=== PATIENT | female | born 1960 | race Hispanic/Latino ===

== ENCOUNTER 2021-08-23 20:39 | Emergency (ER) | payer MEDICARE, OTHER ==
[~2021-08-23] VITALS: Ht 149.9 cm; Wt 50.8 kg
[~2021-08-23 20:39] MED LIST: CLONIDINE HCL0.2 MG PO; GABAPENTIN300 MG PO; IRBESARTAN150 MG PO; LISINOPRIL5 MG; METFORMIN HCL500 MG; METFORMIN HCL500 MG PO; NOVOLOG100 UNIT/1 SC; TRAZODONE HCL50 MG PO
[2021-08-23] MEDS ORDERED: SODIUM CHLORIDE 0.9% 1000ML 1,000 ML IV STA (20:46)
[2021-08-23] MEDS ORDERED: ASPIRIN 81 MG CHEW TAB PO ONE (21:00)
[2021-08-23 21:20] LABS: BASOPHILS # (AUTO) 0.1 (0.0-0.1); BASOPHILS % 0.9 % (0.0-1.0); EOSINOPHILS # (AUTO) 0.2 (0.0-0.4); EOSINOPHILS % 2.5 % (0.0-6.0); HEMATOCRIT 35.6 % (34.2-44.1); HEMOGLOBIN 11.3 g/dL (12.0-16.0); LYMPHOCYTES # (AUTO) 2.4 (1.0-3.2); LYMPHOCYTES % 31.4 % (18.0-39.1); MEAN CORPUSCULAR HEMOGLOBIN 30.6 pg (28-32); MEAN CORPUSCULAR HGB CONC 31.7 g/dL (31-35); MEAN CORPUSCULAR VOLUME 96.5 fL (81-99); MONOCYTES # (AUTO) 0.8 (0.2-0.8); MONOCYTES % 10.1 % (4.4-11.3); NEUTROPHILS # (AUTO) 4.2 (2.1-6.9); NEUTROPHILS % 54.8 % (38.7-80.0); PLATELET COUNT 141 x10e3/uL (140-360); RED BLOOD COUNT 3.69 x10e6/uL (3.6-5.1); RED CELL DISTRIBUTION WIDTH 14.2 % (11.7-14.4)
[2021-08-23 21:52] LABS: ALANINE AMINOTRANSFERASE 37 IU/L (0-55); ALBUMIN 2.9 g/dL (3.5-5.0); ALBUMIN/GLOBULIN RATIO 0.5 (0.8-2.0); ALKALINE PHOSPHATASE 263 IU/L (40-150); BLOOD UREA NITROGEN 17 mg/dL (7-26); BUN/CREATININE RATIO 19 (6-25); CALCIUM 8.3 mg/dL (8.4-10.2); CARBON DIOXIDE 19 mmol/L (22-29); CHLORIDE 111 mmol/L (98-107); CREATINE KINASE 98 IU/L (29-168); CREATININE, SERUM 0.89 mg/dL (0.57-1.11); EST GLOMERULAR FILTRATION RATE 64 ML/MIN (60-); GLUCOSE 149 mg/dL (74-118); SODIUM 138 mmol/L (136-145)
[2021-08-23 23:01] LABS: AMPHETAMINES SCREEN,URINE NEGATIVE (NEGATIVE); BENZODIAZEPINES SCREEN,URINE NEGATIVE (NEGATIVE); CLARITY,URINE SL CLOUDY (CLEAR); COLOR,URINE YELLOW (YELLOW); KETONES,URINE NEGATIVE (NEGATIVE); LEUKOCYTE ESTERASE ,URINE NEGATIVE (NEGATIVE); NITRITE,URINE NEGATIVE (NEGATIVE); PHENCYCLIDINE SCREEN,URINE NEGATIVE (NEGATIVE); PROTEIN,URINE DIPSTICK 1+ (NEGATIVE)
[2021-08-23 23:05] LABS: BACTERIA,URINE FEW /HPF; EPITHELIAL CELLS,URINE MODERATE /LPF; RBC,URINE 0-5 /HPF (0-5); WBC,URINE (MAN) 0-5 /HPF (0-5)
[2021-08-23] MEDS ORDERED: IOPAMIDOL 370 MG/ML 100 ML INFUS..BTL INJ ONE (23:35)
[2021-08-23] MEDS ORDERED: SODIUM CHLORIDE 0.9% 0 ML ONE (23:35)
[2021-08-23] MEDS ORDERED: SODIUM CHLORIDE 0.9% 100 ML ONE (23:55)
[2021-08-24 01:58] VITALS: BP 160/79
== END 2021-08-24 01:53 | disposition home or self-care (01) ==
LOC: ER 20:45
DX: R53.1 Weakness (principal); E11.65 Type 2 diabetes mellitus with hyperglycemia; E11.40 Type 2 diabetes mellitus with diabetic neuropathy, unspecified; I10 Essential (primary) hypertension; K76.9 Liver disease, unspecified
CPT/HCPCS: 36415; 70450; 70496; 70498; 71045; 80053; 80307; 80320; 81001; 82550; 82553; 83880; 84484; 85025; 93005; 99284; J7030; J7050; Q9967

== ENCOUNTER 2021-10-27 19:45 | Emergency (ER) | payer MEDICARE, OTHER ==
[~2021-10-27] VITALS: Ht 149.9 cm; Wt 50.8 kg
[2021-10-27] MEDS ORDERED: LASIX20 MG PO (22:52)
== END 2021-10-27 22:58 | disposition home or self-care (01) ==
LOC: ER 19:47
DX: R60.9 Edema, unspecified (principal); E11.65 Type 2 diabetes mellitus with hyperglycemia; E11.40 Type 2 diabetes mellitus with diabetic neuropathy, unspecified; I10 Essential (primary) hypertension; K76.9 Liver disease, unspecified
CPT/HCPCS: 36415; 71046; 82948; 99283

== ENCOUNTER 2021-12-31 19:26 | Emergency (ER) | payer MEDICARE, OTHER ==
[~2021-12-31] VITALS: Ht 149.9 cm; Wt 49.0 kg
[~2021-12-31 19:26] MED LIST changes: +LASIX20 MG PO
[2021-12-31] MEDS ORDERED: TRAMADOL HCL 50 MG TAB PO STA (20:08)
[2021-12-31] MEDS ORDERED: ULTRAM 50MG50 MG PO (23:11)
[2021-12-31 23:18] VITALS: BP 152/80
== END 2021-12-31 23:21 | disposition home or self-care (01) ==
LOC: ER 19:40
DX: S06.0X0A Concussion without loss of consciousness, initial encounter (principal); M25.511 Pain in right shoulder; M25.551 Pain in right hip; M53.3 Sacrococcygeal disorders, not elsewhere classified; W18.39XA Other fall on same level, initial encounter; Y93.01 Activity, walking, marching and hiking; Y92.89 Other specified places as the place of occurrence of the external cause; E11.40 Type 2 diabetes mellitus with diabetic neuropathy, unspecified; I10 Essential (primary) hypertension; K76.9 Liver disease, unspecified
CPT/HCPCS: 70450; 72220; 99284

== ENCOUNTER 2022-01-24 10:24 | Observation (INO) | payer MEDICARE, OTHER ==
[~2022-01-24] VITALS: Ht 149.9 cm; Wt 47.6 kg
[~2022-01-24 10:24] MED LIST changes: +ULTRAM 50MG50 MG PO
[2022-01-24 11:10] LABS: CLARITY,URINE CLEAR (CLEAR); COLOR,URINE YELLOW (YELLOW)
[2022-01-24 11:11] LABS: LEUKOCYTE ESTERASE ,URINE NEGATIVE (NEGATIVE); NITRITE,URINE NEGATIVE (NEGATIVE); PROTEIN,URINE DIPSTICK 2+ (NEGATIVE)
[2022-01-24 11:12] LABS: KETONES,URINE NEGATIVE (NEGATIVE)
[2022-01-24 11:19] LABS: ALBUMIN 2.9 g/dL (3.5-5.0); ALBUMIN/GLOBULIN RATIO 0.5 (0.8-2.0); ANION GAP 15.6 mmol/L (8-16); CALCIUM 9.3 mg/dL (8.4-10.2); CREATININE, SERUM 1.12 mg/dL (0.57-1.11); POTASSIUM 3.6 mmol/L (3.5-5.1)
[2022-01-24 11:28] LABS: BACTERIA,URINE MODERATE /HPF; WBC,URINE (MAN) 0-5 /HPF (0-5)
[2022-01-24 11:29] LABS: EPITHELIAL CELLS,URINE MODERATE /LPF
[2022-01-24] MEDS ORDERED: SODIUM CHLORIDE 0.9% 1000ML 1,000 ML IV SCH (12:00)
[2022-01-24 12:18] LABS: BASOPHILS # (AUTO) 0.1 (0.0-0.1); BASOPHILS % 0.8 % (0.0-1.0); EOSINOPHILS # (AUTO) 0.2 (0.0-0.4); EOSINOPHILS % 3.5 % (0.0-6.0); HEMATOCRIT 36.7 % (34.2-44.1); HEMOGLOBIN 11.4 g/dL (12.0-16.0); LYMPHOCYTES # (AUTO) 1.8 (1.0-3.2); LYMPHOCYTES % 29.3 % (18.0-39.1); MEAN CORPUSCULAR HEMOGLOBIN 30.3 pg (28-32); MEAN CORPUSCULAR HGB CONC 31.1 g/dL (31-35); MEAN CORPUSCULAR VOLUME 97.6 fL (81-99); MONOCYTES # (AUTO) 0.5 (0.2-0.8); MONOCYTES % 8.5 % (4.4-11.3); NEUTROPHILS # (AUTO) 3.6 (2.1-6.9); NEUTROPHILS % 57.9 % (38.7-80.0); PLATELET COUNT 88 x10e3/uL (140-360); RED BLOOD COUNT 3.76 x10e6/uL (3.6-5.1); RED CELL DISTRIBUTION WIDTH 14.6 % (11.7-14.4)
[2022-01-24] MEDS: SODIUM CHLORIDE 0.9% 1000ML 1,000 ML IV SCH ×2 (13:37→17:37)
[2022-01-24 16:40] VITALS: BP 143/74
[2022-01-24 16:41] VITALS: BP 143/74
[2022-01-24 16:49] VITALS: BP 143/74
[2022-01-24 20:24] VITALS: BP 150/67
== END 2022-01-24 22:00 | disposition left against medical advice (07) ==
LOC: ER 10:43 → ERHOLD 11:49 → MED/SURG 16:37 → MED/SURG2 17:13
PROVIDERS: ADMIT Internal Medicine; ATTEND Internal Medicine
DX: N39.0 Urinary tract infection, site not specified (principal); B96.89 Other specified bacterial agents as the cause of diseases classified elsewhere; Z88.6 Allergy status to analgesic agent; Z88.5 Allergy status to narcotic agent; Z88.0 Allergy status to penicillin; I10 Essential (primary) hypertension; K76.9 Liver disease, unspecified; E11.40 Type 2 diabetes mellitus with diabetic neuropathy, unspecified; Z79.4 Long term (current) use of insulin; Z20.822 Contact with and (suspected) exposure to COVID-19; Z79.899 Other long term (current) drug therapy
CPT/HCPCS: 36415; 70450; 71045; 80053; 81001; 82948; 84484; 85025; 87040; 87086; 93005; 94799; 99284; G0378; J0696; J7030; U0002

== ENCOUNTER 2022-05-21 13:46 | Emergency (ER) | payer MEDICARE, OTHER ==
[~2022-05-21] VITALS: Ht 149.9 cm; Wt 47.6 kg
[2022-05-21 14:19] LABS: BASOPHILS % 0.5 % (0.0-1.0); EOSINOPHILS # (AUTO) 0.2 (0.0-0.4); EOSINOPHILS % 2.7 % (0.0-6.0); HEMATOCRIT 31.8 % (34.2-44.1); HEMOGLOBIN 9.8 g/dL (12.0-16.0); LYMPHOCYTES # (AUTO) 1.7 (1.0-3.2); MEAN CORPUSCULAR HGB CONC 30.8 g/dL (31-35); MEAN CORPUSCULAR VOLUME 97.2 fL (81-99); MONOCYTES # (AUTO) 0.7 (0.2-0.8); MONOCYTES % 9.9 % (4.4-11.3); NEUTROPHILS # (AUTO) 4.7 (2.1-6.9); NEUTROPHILS % 63.6 % (38.7-80.0); PLATELET COUNT 193 x10e3/uL (140-360); RED BLOOD COUNT 3.27 x10e6/uL (3.6-5.1); RED CELL DISTRIBUTION WIDTH 14.9 % (11.7-14.4)
[2022-05-21 14:26] LABS: INR 1.09; PROTHROMBIN TIME 14.3 seconds (11.9-14.5)
[2022-05-21 14:34] LABS: ALBUMIN 2.7 g/dL (3.5-5.0); ALBUMIN/GLOBULIN RATIO 0.5 (0.8-2.0); ANION GAP 14.3 mmol/L (8-16); CALCIUM 8.7 mg/dL (8.4-10.2); CREATININE, SERUM 0.88 mg/dL (0.57-1.11); POTASSIUM 4.3 mmol/L (3.5-5.1)
== END 2022-05-21 15:13 | disposition home or self-care (01) ==
LOC: ER 14:10
DX: R18.8 Other ascites (principal); K74.60 Unspecified cirrhosis of liver; K70.9 Alcoholic liver disease, unspecified; E11.65 Type 2 diabetes mellitus with hyperglycemia; I10 Essential (primary) hypertension; F17.210 Nicotine dependence, cigarettes, uncomplicated
CPT/HCPCS: 36415; 74470; 76705; 80053; 85025; 85610; 99284; C1729

== ENCOUNTER → 2022-06-15 | Outpatient (CLI) | payer MEDICARE, OTHER | LOC: US 12:00 | PROVIDERS: ATTEND Nurse Practitioner | DX: K70.30 Alcoholic cirrhosis of liver without ascites (principal) | CPT/HCPCS: 49083; C1729 ==

== ENCOUNTER 2022-07-04 23:42 | Inpatient (IN) | payer MEDICARE, OTHER ==
[~2022-07-04] VITALS: Ht 149.9 cm; Wt 47.6 kg
[2022-07-05] MEDS ORDERED: ONDANSETRON HCL INJ 2MG/ML 2ML 2 MG/ML VIAL IV STA (00:04)
[2022-07-05 00:09] LABS: BASOPHILS # (AUTO) 0.1 (0.0-0.1); EOSINOPHILS # (AUTO) 0.2 (0.0-0.4); EOSINOPHILS % 2.8 % (0.0-6.0); HEMATOCRIT 30.6 % (34.2-44.1); HEMOGLOBIN 9.3 g/dL (12.0-16.0); LYMPHOCYTES # (AUTO) 1.9 (1.0-3.2); LYMPHOCYTES % 23.9 % (18.0-39.1); MEAN CORPUSCULAR HEMOGLOBIN 28.3 pg (28-32); MEAN CORPUSCULAR HGB CONC 30.4 g/dL (31-35); MONOCYTES # (AUTO) 0.8 (0.2-0.8); MONOCYTES % 10.5 % (4.4-11.3); NEUTROPHILS # (AUTO) 4.9 (2.1-6.9); NEUTROPHILS % 61.5 % (38.7-80.0); PLATELET COUNT 164 x10e3/uL (140-360); RED BLOOD COUNT 3.29 x10e6/uL (3.6-5.1); RED CELL DISTRIBUTION WIDTH 15.7 % (11.7-14.4)
[2022-07-05] MEDS ORDERED: SODIUM CHLORIDE FLUSH 10 ML SYR IV PRN (00:15)
[2022-07-05 00:21] LABS: ALBUMIN 2.6 g/dL (3.5-5.0); ALBUMIN/GLOBULIN RATIO 0.4 (0.8-2.0); ANION GAP 13.6 mmol/L (8-16); CREATININE, SERUM 0.85 mg/dL (0.57-1.11); POTASSIUM 4.6 mmol/L (3.5-5.1)
[2022-07-05 03:10] LABS: CLARITY,URINE CLEAR (CLEAR); COLOR,URINE YELLOW (YELLOW); KETONES,URINE NEGATIVE (NEGATIVE); LEUKOCYTE ESTERASE ,URINE NEGATIVE (NEGATIVE); NITRITE,URINE NEGATIVE (NEGATIVE); PROTEIN,URINE DIPSTICK TRACE (NEGATIVE)
[2022-07-05 03:14] LABS: BACTERIA,URINE RARE /HPF; RBC,URINE 0-5 /HPF (0-5); WBC,URINE (MAN) 0-5 /HPF (0-5)
[2022-07-05] MEDS: LACTULOSE SYRUP 20 GM/30 ML UDC PO SCH ×4 (03:38→20:56)
[2022-07-05] MEDS ORDERED: ONDANSETRON HCL INJ 2MG/ML 2ML 2 MG/ML VIAL IV PRN ×2 (04:15→09:45)
[2022-07-05] MEDS ORDERED: SODIUM CHLORIDE FLUSH 10 ML SYR INJ PRN (04:15)
[2022-07-05] MEDS ORDERED: GABAPENTIN 300 MG CAP PO ONE (04:30)
[2022-07-05 10:45] LABS: FERRITIN 29.44 ng/mL (4.63-204.00)
[2022-07-05] MEDS ORDERED: LIDOCAINE HCL 2% LOCAL INJ 5 ML SDV VIAL INJ ONE (13:06)
[2022-07-05] MEDS ORDERED: PROPOFOL IV EMULSION 10 MG/ML 20 ML VIAL ONE (13:06)
[2022-07-05 17:03] VITALS: BP 155/62
[2022-07-05 17:21] VITALS: BP 155/62
[2022-07-05] MEDS ORDERED: AMLODIPINE BESY10 MG PO (19:43)
[2022-07-05] MEDS ORDERED: CONSTULOSE10 GM/15 M PO (19:43)
[2022-07-05] MEDS ORDERED: ATORVASTATIN CA20 MG PO (19:43)
[2022-07-05] MEDS ORDERED: LINZESS290 MCG PO (19:43)
[2022-07-05 20:00] VITALS: BP_SYST 116; BP_SYST 147; BP_DIAS 56; BP_DIAS 62
[2022-07-05] MEDS ORDERED: TRAZODONE HCL100 MG PO (20:09)
[2022-07-05 20:30] VITALS: BP 147/62
[2022-07-05] MEDS ORDERED: DEXTROSE 50% SYRINGE 50 ML IV PRN (20:30)
[2022-07-05] MEDS: TRAZODONE HCL 50 MG TAB PO SCH (20:57)
[2022-07-05] MEDS: GABAPENTIN 300 MG CAP PO SCH (20:57)
[2022-07-05] MEDS: INSULIN REGULAR, HUMAN 100 UNIT/1 ML SQ SCH (21:00)
[2022-07-06] VITALS (8 sets, daily range): BP systolic 118–134; BP diastolic 50–65
[2022-07-06 00:41] LABS: INR 1.17; PROTHROMBIN TIME 15.4 seconds (11.9-14.5)
[2022-07-06] MEDS ORDERED: CYANOCOBALAMIN INJ 1,000 MCG/ML VIAL IM ONE (01:30)
[2022-07-06 06:06] LABS: BASOPHILS % 0.8 % (0.0-1.0); EOSINOPHILS # (AUTO) 0.2 (0.0-0.4); EOSINOPHILS % 3.6 % (0.0-6.0); HEMOGLOBIN 8.7 g/dL (12.0-16.0); LYMPHOCYTES # (AUTO) 1.3 (1.0-3.2); LYMPHOCYTES % 25.4 % (18.0-39.1); MEAN CORPUSCULAR HEMOGLOBIN 28.7 pg (28-32); MEAN CORPUSCULAR HGB CONC 31.1 g/dL (31-35); MEAN CORPUSCULAR VOLUME 92.4 fL (81-99); MONOCYTES # (AUTO) 0.6 (0.2-0.8); MONOCYTES % 12.2 % (4.4-11.3); NEUTROPHILS # (AUTO) 2.9 (2.1-6.9); NEUTROPHILS % 57.8 % (38.7-80.0); PLATELET COUNT 158 x10e3/uL (140-360); RED BLOOD COUNT 3.03 x10e6/uL (3.6-5.1); RED CELL DISTRIBUTION WIDTH 15.7 % (11.7-14.4)
[2022-07-06 06:39] LABS: ALBUMIN 2.5 g/dL (3.5-5.0); BILIRUBIN,DIRECT 0.5 mg/dL (0.0-0.5); CALCIUM 8.8 mg/dL (8.4-10.2); CREATININE, SERUM 0.84 mg/dL (0.57-1.11)
[2022-07-06] MEDS: INSULIN REGULAR, HUMAN 100 UNIT/1 ML SQ SCH ×4 (07:30→23:23)
[2022-07-06] MEDS: CYANOCOBALAMIN INJ 1,000 MCG/ML VIAL IM SCH (08:36)
[2022-07-06] MEDS: IRON SUCROSE 100 MG in SODIUM CHLORIDE 0.9% 100 ML IV SCH (08:37)
[2022-07-06] MEDS: LACTULOSE SYRUP 20 GM/30 ML UDC PO SCH ×3 (09:00→21:21)
[2022-07-06] MEDS: GABAPENTIN 300 MG CAP PO SCH ×3 (09:00→21:21)
[2022-07-06] MEDS: RIFAXIMIN 550 MG TABLET PO SCH ×2 (09:00→16:17)
[2022-07-06] MEDS: DEXTROSE 5%/0.45% SOD CHL 1,000 ML IV SCH (15:29)
[2022-07-06] MEDS ORDERED: DESMOPRESSIN ACETATE 4 MCG/ML VIAL IV ONE (19:00)
[2022-07-06] MEDS ORDERED: PROPRANOLOL HCL 10 MG TAB PO ONE (19:05)
[2022-07-06] MEDS: TRAZODONE HCL 50 MG TAB PO SCH (21:21)
[2022-07-07] VITALS (7 sets, daily range): BP systolic 117–143; BP diastolic 56–75
[2022-07-07] MEDS: INSULIN REGULAR, HUMAN 100 UNIT/1 ML SQ SCH ×4 (07:30→20:46)
[2022-07-07] MEDS: RIFAXIMIN 550 MG TABLET PO SCH ×2 (08:58→15:49)
[2022-07-07] MEDS: LACTULOSE SYRUP 20 GM/30 ML UDC PO SCH ×3 (08:58→20:41)
[2022-07-07] MEDS: GABAPENTIN 300 MG CAP PO SCH ×3 (08:58→20:41)
[2022-07-07] MEDS: CYANOCOBALAMIN INJ 1,000 MCG/ML VIAL IM SCH (08:59)
[2022-07-07] MEDS: PROPRANOLOL HCL 10 MG TAB PO SCH ×2 (08:59→15:50)
[2022-07-07] MEDS: IRON SUCROSE 100 MG in SODIUM CHLORIDE 0.9% 100 ML IV SCH (09:00)
[2022-07-07] MEDS: DEXTROSE 5%/0.45% SOD CHL 1,000 ML IV SCH (11:15)
[2022-07-07] MEDS ORDERED: SODIUM BICARBONATE 650 MG TAB PO SCH (12:30)
[2022-07-07 13:43] LABS: HEMOGLOBIN 8.7 g/dL (12.0-16.0)
[2022-07-07 14:04] LABS: ANION GAP 13.4 mmol/L (8-16); CALCIUM 8.7 mg/dL (8.4-10.2); CREATININE, SERUM 0.89 mg/dL (0.57-1.11); POTASSIUM 4.4 mmol/L (3.5-5.1)
[2022-07-07] MEDS: SODIUM BICARBONATE 650 MG TAB PO SCH (20:40)
[2022-07-07] MEDS: TRAZODONE HCL 50 MG TAB PO SCH (20:41)
[2022-07-08] VITALS (8 sets, daily range): BP systolic 100–144; BP diastolic 54–76
[2022-07-08] MEDS: SODIUM BICARBONATE 650 MG TAB PO SCH ×3 (05:29→20:48)
[2022-07-08 06:32] LABS: ANION GAP 12.1 mmol/L (8-16); CALCIUM 8.5 mg/dL (8.4-10.2); CREATININE, SERUM 0.81 mg/dL (0.57-1.11); POTASSIUM 4.1 mmol/L (3.5-5.1)
[2022-07-08] MEDS: INSULIN REGULAR, HUMAN 100 UNIT/1 ML SQ SCH ×4 (07:30→21:00)
[2022-07-08] MEDS: CYANOCOBALAMIN INJ 1,000 MCG/ML VIAL IM SCH (08:32)
[2022-07-08] MEDS: PROPRANOLOL HCL 10 MG TAB PO SCH ×2 (08:32→16:39)
[2022-07-08] MEDS: GABAPENTIN 300 MG CAP PO SCH ×3 (08:32→20:50)
[2022-07-08] MEDS: RIFAXIMIN 550 MG TABLET PO SCH ×2 (08:32→16:39)
[2022-07-08] MEDS: LACTULOSE SYRUP 20 GM/30 ML UDC PO SCH ×3 (08:32→20:49)
[2022-07-08] MEDS: IRON SUCROSE 100 MG in SODIUM CHLORIDE 0.9% 100 ML IV SCH (08:33)
[2022-07-08] MEDS: IBUPROFEN 600 MG TAB PO PRN (11:43)
[2022-07-08] MEDS: METRONIDAZOLE 500MG/NS 100ML 100 ML IV SCH ×2 (11:43→16:39)
[2022-07-08 12:22] LABS: CLARITY,URINE SL CLOUDY (CLEAR); COLOR,URINE YELLOW (YELLOW); KETONES,URINE NEGATIVE (NEGATIVE); LEUKOCYTE ESTERASE ,URINE NEGATIVE (NEGATIVE); NITRITE,URINE NEGATIVE (NEGATIVE); PROTEIN,URINE DIPSTICK 2+ (NEGATIVE); URINE UROBILINOGEN 1 mg/dL (0.2 - 1)
[2022-07-08 12:57] LABS: BACTERIA,URINE FEW /HPF; EPITHELIAL CELLS,URINE MODERATE /LPF; WBC,URINE (MAN) 0-5 /HPF (0-5)
[2022-07-08] MEDS: TRAZODONE HCL 50 MG TAB PO SCH (20:48)
[2022-07-09] VITALS (9 sets, daily range): BP systolic 106–153; BP diastolic 45–68
[2022-07-09] MEDS: SODIUM BICARBONATE 650 MG TAB PO SCH ×3 (04:53→23:04)
[2022-07-09 05:58] LABS: BASOPHILS % 0.5 % (0.0-1.0); EOSINOPHILS # (AUTO) 0.1 (0.0-0.4); EOSINOPHILS % 1.7 % (0.0-6.0); HEMATOCRIT 28.8 % (34.2-44.1); LYMPHOCYTES # (AUTO) 1.9 (1.0-3.2); LYMPHOCYTES % 22.5 % (18.0-39.1); MEAN CORPUSCULAR HEMOGLOBIN 29.1 pg (28-32); MEAN CORPUSCULAR HGB CONC 31.3 g/dL (31-35); MEAN CORPUSCULAR VOLUME 93.2 fL (81-99); MONOCYTES # (AUTO) 1.2 (0.2-0.8); MONOCYTES % 14.3 % (4.4-11.3); NEUTROPHILS # (AUTO) 5.1 (2.1-6.9); NEUTROPHILS % 60.8 % (38.7-80.0); PLATELET COUNT 141 x10e3/uL (140-360); RED BLOOD COUNT 3.09 x10e6/uL (3.6-5.1); RED CELL DISTRIBUTION WIDTH 16.1 % (11.7-14.4)
[2022-07-09] MEDS: IBUPROFEN 600 MG TAB PO PRN ×2 (06:08→23:26)
[2022-07-09 06:18] LABS: ANION GAP 11.8 mmol/L (8-16); CALCIUM 7.9 mg/dL (8.4-10.2); CREATININE, SERUM 1.14 mg/dL (0.57-1.11); POTASSIUM 3.8 mmol/L (3.5-5.1)
[2022-07-09] MEDS: INSULIN REGULAR, HUMAN 100 UNIT/1 ML SQ SCH ×4 (07:30→22:00)
[2022-07-09] MEDS: LACTULOSE SYRUP 20 GM/30 ML UDC PO SCH ×3 (08:59→23:04)
[2022-07-09] MEDS: RIFAXIMIN 550 MG TABLET PO SCH ×2 (08:59→17:52)
[2022-07-09] MEDS: PROPRANOLOL HCL 10 MG TAB PO SCH ×2 (09:00→17:00)
[2022-07-09] MEDS: GABAPENTIN 300 MG CAP PO SCH ×3 (09:00→23:04)
[2022-07-09] MEDS: CYANOCOBALAMIN INJ 1,000 MCG/ML VIAL IM SCH (09:00)
[2022-07-09] MEDS: METRONIDAZOLE 500MG/NS 100ML 100 ML IV SCH (09:01)
[2022-07-09] MEDS: IRON SUCROSE 100 MG in SODIUM CHLORIDE 0.9% 100 ML IV SCH (10:33)
[2022-07-09] MEDS ORDERED: ONDANSETRON HCL 4 MG ORAL DISINTEGRATING TAB PO PRN (13:45)
[2022-07-09] MEDS: TRAZODONE HCL 50 MG TAB PO SCH (23:04)
[2022-07-10] VITALS (7 sets, daily range): BP systolic 94–137; BP diastolic 50–67
[2022-07-10 05:48] LABS: BASOPHILS % 0.4 % (0.0-1.0); EOSINOPHILS # (AUTO) 0.2 (0.0-0.4); EOSINOPHILS % 2.1 % (0.0-6.0); HEMATOCRIT 25.4 % (34.2-44.1); HEMOGLOBIN 7.9 g/dL (12.0-16.0); LYMPHOCYTES % 26.6 % (18.0-39.1); MEAN CORPUSCULAR HGB CONC 31.1 g/dL (31-35); MEAN CORPUSCULAR VOLUME 93.4 fL (81-99); MONOCYTES # (AUTO) 1.1 (0.2-0.8); MONOCYTES % 14.1 % (4.4-11.3); NEUTROPHILS # (AUTO) 4.3 (2.1-6.9); NEUTROPHILS % 56.4 % (38.7-80.0); PLATELET COUNT 138 x10e3/uL (140-360); RED BLOOD COUNT 2.72 x10e6/uL (3.6-5.1); RED CELL DISTRIBUTION WIDTH 16.2 % (11.7-14.4)
[2022-07-10] MEDS: SODIUM BICARBONATE 650 MG TAB PO SCH ×3 (06:03→20:59)
[2022-07-10 06:14] LABS: ANION GAP 10.3 mmol/L (8-16); CALCIUM 7.8 mg/dL (8.4-10.2); CREATININE, SERUM 1.29 mg/dL (0.57-1.11); POTASSIUM 3.3 mmol/L (3.5-5.1)
[2022-07-10] MEDS: INSULIN REGULAR, HUMAN 100 UNIT/1 ML SQ SCH ×4 (07:25→21:22)
[2022-07-10] MEDS ORDERED: SODIUM CHLORIDE 0.9% 500ML 500 ML IV ONE (08:00)
[2022-07-10] MEDS: LACTULOSE SYRUP 20 GM/30 ML UDC PO SCH ×3 (09:00→21:00)
[2022-07-10] MEDS: CYANOCOBALAMIN INJ 1,000 MCG/ML VIAL IM SCH (09:12)
[2022-07-10] MEDS: RIFAXIMIN 550 MG TABLET PO SCH ×2 (09:12→18:09)
[2022-07-10] MEDS: GABAPENTIN 300 MG CAP PO SCH ×3 (09:13→21:00)
[2022-07-10] MEDS: PROPRANOLOL HCL 10 MG TAB PO SCH ×2 (09:13→17:00)
[2022-07-10] MEDS: POTASSIUM CHLORIDE 20 MEQ TAB CR PO SCH (09:14)
[2022-07-10] MEDS: IRON SUCROSE 100 MG in SODIUM CHLORIDE 0.9% 100 ML IV SCH (10:00)
[2022-07-10 12:50] LABS: ANION GAP 11.5 mmol/L (8-16); CREATININE, SERUM 1.26 mg/dL (0.57-1.11); POTASSIUM 3.5 mmol/L (3.5-5.1)
[2022-07-10] MEDS: TRAZODONE HCL 50 MG TAB PO SCH (20:59)
[2022-07-10] MEDS: IBUPROFEN 600 MG TAB PO PRN (21:17)
[2022-07-11] VITALS: BP 99/54
[2022-07-11 04:00] VITALS: BP 99/53
[2022-07-11] MEDS: SODIUM BICARBONATE 650 MG TAB PO SCH ×2 (06:04→13:30)
[2022-07-11] MEDS: INSULIN REGULAR, HUMAN 100 UNIT/1 ML SQ SCH ×3 (07:30→17:13)
[2022-07-11 08:27] VITALS: BP 121/68
[2022-07-11 08:33] VITALS: BP 121/68
[2022-07-11] MEDS: LACTULOSE SYRUP 20 GM/30 ML UDC PO SCH ×2 (09:00→15:00)
[2022-07-11] MEDS: CYANOCOBALAMIN INJ 1,000 MCG/ML VIAL IM SCH (09:54)
[2022-07-11] MEDS: PROPRANOLOL HCL 10 MG TAB PO SCH ×2 (09:56→17:14)
[2022-07-11] MEDS: RIFAXIMIN 550 MG TABLET PO SCH ×2 (09:56→17:13)
[2022-07-11] MEDS: GABAPENTIN 300 MG CAP PO SCH ×2 (09:56→17:14)
[2022-07-11] MEDS: POTASSIUM CHLORIDE 20 MEQ TAB CR PO SCH (09:57)
[2022-07-11 12:30] VITALS: BP 107/60
[2022-07-11] MEDS ORDERED: INDERAL10 MG PO (15:56)
[2022-07-11] MEDS ORDERED: PANTOPRAZOLE SO40 MG PO (15:56)
[2022-07-11] MEDS ORDERED: CIPRO500 MG PO (15:58)
[2022-07-11 16:28] VITALS: BP 121/61
[2022-07-11] MEDS ORDERED: PANTOPRAZOLE SOD 40 MG TABEC PO SCH (16:30)
== END 2022-07-11 18:00 | disposition home or self-care (01) | DRG 441 ==
LOC: ER 23:47 → ERHOLD 07-05 04:07 → MED/SURG2 07-05 16:22 → OBSVTOIN 07-07 09:53
PROVIDERS: ADMIT Internal Medicine; ATTEND Internal Medicine
PROC: 06L38CZ Occlusion of Esophageal Vein with Extraluminal Device, Via Natural or Artificial Opening Endoscopic (ICD-10-PCS; principal; 2022-07-06 18:05)
DX: K76.82 Hepatic encephalopathy (principal); I85.11 Secondary esophageal varices with bleeding; E87.1 Hypo-osmolality and hyponatremia; E87.20 Acidosis, unspecified; K76.6 Portal hypertension; Z20.822 Contact with and (suspected) exposure to COVID-19; I10 Essential (primary) hypertension; E78.5 Hyperlipidemia, unspecified; K70.30 Alcoholic cirrhosis of liver without ascites; F17.210 Nicotine dependence, cigarettes, uncomplicated; K31.89 Other diseases of stomach and duodenum; D64.9 Anemia, unspecified; N20.0 Calculus of kidney; E11.40 Type 2 diabetes mellitus with diabetic neuropathy, unspecified; Z88.0 Allergy status to penicillin; Z64.4 Discord with counselors
CPT/HCPCS: 36415; 43239; 70450; 71045; 76700; 80048; 80053; 80076; 81001; 82105; 82140; 82270; 82607; 82728; 82948; 83540; 83690; 83880; 84466; 84484; 85014; 85018; 85025; 85610; 85730; 87040; 87071; 87086; 87205; 93005; 94760; 96372; 99252; 99284; G0378; J0696; J1756; J2001; J3420; J7050

== ENCOUNTER 2022-08-06 16:02 | Inpatient (IN) | payer MEDICARE, OTHER ==
[~2022-08-06] VITALS: Ht 149.9 cm; Wt 53.5 kg
[~2022-08-06 16:02] MED LIST changes: +AMLODIPINE BESY10 MG PO; +ATORVASTATIN CA20 MG PO; +CIPRO500 MG PO; +CONSTULOSE10 GM/15 M PO; +INDERAL10 MG PO; +LINZESS290 MCG PO; +PANTOPRAZOLE SO40 MG PO; +TRAZODONE HCL100 MG PO
[2022-08-06 17:34] LABS: BASOPHILS # (AUTO) 0.1 (0.0-0.1); BASOPHILS % 0.7 % (0.0-1.0); EOSINOPHILS # (AUTO) 0.2 (0.0-0.4); EOSINOPHILS % 2.1 % (0.0-6.0); HEMATOCRIT 31.6 % (34.2-44.1); HEMOGLOBIN 10.1 g/dL (12.0-16.0); LYMPHOCYTES # (AUTO) 1.7 (1.0-3.2); LYMPHOCYTES % 23.8 % (18.0-39.1); MEAN CORPUSCULAR HEMOGLOBIN 30.4 pg (28-32); MEAN CORPUSCULAR VOLUME 95.2 fL (81-99); MONOCYTES # (AUTO) 0.8 (0.2-0.8); MONOCYTES % 10.7 % (4.4-11.3); NEUTROPHILS # (AUTO) 4.4 (2.1-6.9); NEUTROPHILS % 62.4 % (38.7-80.0); PLATELET COUNT 164 x10e3/uL (140-360); RED BLOOD COUNT 3.32 x10e6/uL (3.6-5.1); RED CELL DISTRIBUTION WIDTH 17.9 % (11.7-14.4)
[2022-08-06 17:55] LABS: INR 1.17; PROTHROMBIN TIME 15.4 seconds (11.9-14.5)
[2022-08-06 18:02] LABS: ALBUMIN 2.3 g/dL (3.5-5.0); ALBUMIN/GLOBULIN RATIO 0.3 (0.8-2.0); ANION GAP 15.5 mmol/L (8-16); CALCIUM 8.6 mg/dL (8.4-10.2); CREATININE, SERUM 0.8 mg/dL (0.57-1.11); POTASSIUM 3.5 mmol/L (3.5-5.1)
[2022-08-06] MEDS ORDERED: DEXTROSE 50% SYRINGE 50 ML IV PRN (21:30)
[2022-08-06] MEDS ORDERED: LACTULOSE SYRUP 20 GM/30 ML UDC PO PRN (21:30)
[2022-08-06] MEDS: Morphine 4mg INJECTION 4 MG/ML INJ IV PRN (22:00)
[2022-08-06] MEDS: ONDANSETRON HCL INJ 2MG/ML 2ML 2 MG/ML VIAL IV PRN (22:00)
[2022-08-06 22:53] VITALS: BP 147/78
[2022-08-06] MEDS: FUROSEMIDE INJ 10 MG/ML 4 ML VIAL IV SCH (23:09)
[2022-08-07] VITALS (7 sets, daily range): BP systolic 112–153; BP diastolic 51–81
[2022-08-07] MEDS ORDERED: CEFTRIAXONE 1 GM VIAL IM STA (02:30)
[2022-08-07 05:04] LABS: BASOPHILS % 0.6 % (0.0-1.0); EOSINOPHILS # (AUTO) 0.2 (0.0-0.4); EOSINOPHILS % 2.9 % (0.0-6.0); HEMATOCRIT 27.2 % (34.2-44.1); HEMOGLOBIN 8.8 g/dL (12.0-16.0); LYMPHOCYTES # (AUTO) 1.8 (1.0-3.2); LYMPHOCYTES % 28.4 % (18.0-39.1); MEAN CORPUSCULAR HEMOGLOBIN 30.1 pg (28-32); MEAN CORPUSCULAR HGB CONC 32.4 g/dL (31-35); MEAN CORPUSCULAR VOLUME 93.2 fL (81-99); MONOCYTES # (AUTO) 0.9 (0.2-0.8); MONOCYTES % 13.9 % (4.4-11.3); NEUTROPHILS # (AUTO) 3.4 (2.1-6.9); PLATELET COUNT 151 x10e3/uL (140-360); RED BLOOD COUNT 2.92 x10e6/uL (3.6-5.1); RED CELL DISTRIBUTION WIDTH 17.6 % (11.7-14.4)
[2022-08-07 05:18] LABS: ANION GAP 13.3 mmol/L (8-16); CALCIUM 8.1 mg/dL (8.4-10.2); CREATININE, SERUM 0.71 mg/dL (0.57-1.11); POTASSIUM 3.3 mmol/L (3.5-5.1)
[2022-08-07 05:41] LABS: CHOL/HDL RATIO 5.7 (3.0-3.6)
[2022-08-07] MEDS: INSULIN REGULAR, HUMAN 100 UNIT/1 ML SQ SCH ×4 (07:11→21:00)
[2022-08-07] MEDS: FUROSEMIDE INJ 10 MG/ML 4 ML VIAL IV SCH ×3 (08:51→21:24)
[2022-08-07] MEDS: GABAPENTIN 300 MG CAP PO SCH ×3 (08:51→21:22)
[2022-08-07] MEDS: PANTOPRAZOLE SOD 40 MG TABEC PO SCH ×2 (08:51→17:21)
[2022-08-07] MEDS: PROPRANOLOL HCL 10 MG TAB PO SCH ×2 (08:52→17:22)
[2022-08-07] MEDS: LINACLOTIDE 145 MCG CAPSULE PO SCH (08:52)
[2022-08-07] MEDS ORDERED: SODIUM CHLORIDE 0.9% 250ML 250 ML ONE (08:55)
[2022-08-07] MEDS: ONDANSETRON HCL INJ 2MG/ML 2ML 2 MG/ML VIAL IV PRN ×3 (09:00→22:05)
[2022-08-07] MEDS: Morphine 4mg INJECTION 4 MG/ML INJ IV PRN ×3 (09:01→22:05)
[2022-08-07 15:15] LABS: BODY FLUID APPEARANCE SL.CLOUDY; BODY FLUID COLOR YELLOW; BODY FLUID TYPE PERITONEAL; RBC,BODY FLUID < 2000 cells/uL; WBC,BODY FLUID 252 cells/uL
[2022-08-07 17:01] LABS: LYMPHOCYTES,BODY FLUID 7 %; MONO/MACROPHG,BODY FLUID 68 %; NEUTROPHILS,BODY FLUID 3 %; OTHER CELLS,BODY FLUID 22 %
[2022-08-07] MEDS ORDERED: ATORVASTATIN 20 MG TAB PO SCH (21:00)
[2022-08-07] MEDS: TRAZODONE HCL 50 MG TAB PO SCH (21:22)
[2022-08-08] VITALS (8 sets, daily range): BP systolic 97–124; BP diastolic 50–66
[2022-08-08 01:02] LABS: % IRON SATURATION 18 % (15-50); IRON 44 ug/dL (50-170); TOTAL IRON BINDING CAPACITY 245 ug/dL (261-478); TRANSFERRIN 175 mg/dL (180-382)
[2022-08-08 04:58] LABS: BASOPHILS % 0.6 % (0.0-1.0); EOSINOPHILS # (AUTO) 0.1 (0.0-0.4); EOSINOPHILS % 1.7 % (0.0-6.0); HEMATOCRIT 28.4 % (34.2-44.1); HEMOGLOBIN 9.2 g/dL (12.0-16.0); LYMPHOCYTES % 19.1 % (18.0-39.1); MEAN CORPUSCULAR HGB CONC 32.4 g/dL (31-35); MEAN CORPUSCULAR VOLUME 92.5 fL (81-99); MONOCYTES # (AUTO) 0.9 (0.2-0.8); MONOCYTES % 15.9 % (4.4-11.3); NEUTROPHILS # (AUTO) 3.3 (2.1-6.9); NEUTROPHILS % 62.5 % (38.7-80.0); PLATELET COUNT 158 x10e3/uL (140-360); RED BLOOD COUNT 3.07 x10e6/uL (3.6-5.1); RED CELL DISTRIBUTION WIDTH 17.3 % (11.7-14.4)
[2022-08-08 05:10] LABS: INR 1.28; PROTHROMBIN TIME 16.5 seconds (11.9-14.5)
[2022-08-08 05:20] LABS: ALBUMIN 1.9 g/dL (3.5-5.0); ALBUMIN/GLOBULIN RATIO 0.3 (0.8-2.0); ANION GAP 13.4 mmol/L (8-16); CALCIUM 7.6 mg/dL (8.4-10.2); CREATININE, SERUM 1.19 mg/dL (0.57-1.11); POTASSIUM 3.4 mmol/L (3.5-5.1)
[2022-08-08] MEDS: INSULIN REGULAR, HUMAN 100 UNIT/1 ML SQ SCH ×4 (07:30→20:51)
[2022-08-08] MEDS: PROPRANOLOL HCL 10 MG TAB PO SCH ×2 (08:47→16:19)
[2022-08-08] MEDS: PANTOPRAZOLE SOD 40 MG TABEC PO SCH ×2 (08:49→16:19)
[2022-08-08] MEDS: LINACLOTIDE 145 MCG CAPSULE PO SCH (08:49)
[2022-08-08] MEDS: FUROSEMIDE INJ 10 MG/ML 4 ML VIAL IV SCH ×2 (09:00→20:45)
[2022-08-08] MEDS: GABAPENTIN 300 MG CAP PO SCH ×3 (09:00→20:45)
[2022-08-08] MEDS ORDERED: POTASSIUM CHLORIDE 10MEQ EA PO ONE (11:00)
[2022-08-08] MEDS: SPIRONOLACTONE 25 MG TAB PO SCH (12:28)
[2022-08-08 20:38] LABS: CLARITY,URINE SL CLOUDY (CLEAR); COLOR,URINE AMBER (YELLOW); KETONES,URINE NEGATIVE (NEGATIVE); LEUKOCYTE ESTERASE ,URINE NEGATIVE (NEGATIVE); NITRITE,URINE NEGATIVE (NEGATIVE); PROTEIN,URINE DIPSTICK NEGATIVE (NEGATIVE); URINE UROBILINOGEN 0.2 mg/dL (0.2 - 1)
[2022-08-08] MEDS: TRAZODONE HCL 50 MG TAB PO SCH (20:45)
[2022-08-08 20:47] LABS: RBC,URINE 0-5 /HPF (0-5)
[2022-08-08 20:48] LABS: EPITHELIAL CELLS,URINE FEW /LPF; YEAST,URINE RARE
[2022-08-08 21:54] LABS: ANION GAP 13.4 mmol/L (8-16); CALCIUM 7.4 mg/dL (8.4-10.2); CREATININE, SERUM 1.27 mg/dL (0.57-1.11); POTASSIUM 3.4 mmol/L (3.5-5.1)
[2022-08-09 00:26] VITALS: BP 96/39
[2022-08-09 05:30] LABS: ANION GAP 11.4 mmol/L (8-16); CALCIUM 7.4 mg/dL (8.4-10.2); CREATININE, SERUM 1.21 mg/dL (0.57-1.11); POTASSIUM 3.4 mmol/L (3.5-5.1)
[2022-08-09 06:00] VITALS: BP 116/63
[2022-08-09] MEDS: INSULIN REGULAR, HUMAN 100 UNIT/1 ML SQ SCH ×2 (07:30→11:30)
[2022-08-09] MEDS ORDERED: ALDACTONE25 MG PO (08:15)
[2022-08-09] MEDS ORDERED: FUROSEMIDE40 MG PO (08:15)
[2022-08-09] MEDS ORDERED: POTASSIUM CHLO10 ME1 PO (08:16)
[2022-08-09 08:40] VITALS: BP 101/43
[2022-08-09] MEDS ORDERED: POTASSIUM CHLORIDE 10MEQ EA PO ONE (09:00)
[2022-08-09] MEDS ORDERED: FUROSEMIDE 40 MG TAB PO SCH (09:00)
[2022-08-09] MEDS: PROPRANOLOL HCL 10 MG TAB PO SCH (09:00)
[2022-08-09] MEDS ORDERED: POTASSIUM CHLORIDE 20 MEQ TAB CR PO ONE (09:30)
[2022-08-09] MEDS: LINACLOTIDE 145 MCG CAPSULE PO SCH (09:33)
[2022-08-09] MEDS: GABAPENTIN 300 MG CAP PO SCH ×2 (09:33→13:42)
[2022-08-09] MEDS: PANTOPRAZOLE SOD 40 MG TABEC PO SCH (09:34)
[2022-08-09] MEDS: SPIRONOLACTONE 25 MG TAB PO SCH (09:34)
[2022-08-09 13:02] VITALS: BP 128/57
[2022-08-09] MEDS ORDERED: ONDANSETRON HCL 4 MG ORAL DISINTEGRATING TAB PO PRN (14:30)
== END 2022-08-09 15:31 | disposition home or self-care (01) | DRG 432 ==
LOC: ER 16:38 → ERHOLD 17:15 → MED/SURG2 22:31 → OBSVTOIN 22:50
PROVIDERS: ADMIT Internal Medicine; ATTEND Internal Medicine
PROC: 0W9G3ZZ Drainage of Peritoneal Cavity, Percutaneous Approach (ICD-10-PCS; principal; 2022-08-07)
DX: K70.31 Alcoholic cirrhosis of liver with ascites (principal); J96.01 Acute respiratory failure with hypoxia; I85.10 Secondary esophageal varices without bleeding; Z20.822 Contact with and (suspected) exposure to COVID-19; E11.9 Type 2 diabetes mellitus without complications; B18.2 Chronic viral hepatitis C; F10.21 Alcohol dependence, in remission
CPT/HCPCS: 0223U; 36415; 49083; 71046; 74470; 76705; 76770; 80048; 80053; 80061; 81001; 82040; 82140; 82607; 82746; 82945; 82948; 83036; 83540; 84157; 84466; 85025; 85045; 85610; 87070; 87086; 87205; 88112; 88300; 88305; 89051; 93005; 93306; 94799; 99284; C1729; J0696; J1940; J2270; J2405; J7050

== ENCOUNTER 2022-08-12 22:26 | Emergency (ER) | payer MEDICARE, OTHER ==
[~2022-08-12] VITALS: Ht 271.8 cm; Wt 53.5 kg
[~2022-08-12 22:26] MED LIST changes: +ALDACTONE25 MG PO; +FUROSEMIDE40 MG PO; +POTASSIUM CHLO10 ME1 PO
[2022-08-12] MEDS ORDERED: ONDANSETRON HCL INJ 2MG/ML 2ML 2 MG/ML VIAL IV STA (23:12)
[2022-08-12] MEDS ORDERED: Morphine 2mg Syringe 2 MG/ML SYR IV ONE (23:15)
[2022-08-12 23:41] LABS: BASOPHILS % 0.6 % (0.0-1.0); EOSINOPHILS # (AUTO) 0.2 (0.0-0.4); HEMATOCRIT 30.9 % (34.2-44.1); LYMPHOCYTES # (AUTO) 1.7 (1.0-3.2); LYMPHOCYTES % 26.6 % (18.0-39.1); MEAN CORPUSCULAR HEMOGLOBIN 30.2 pg (28-32); MEAN CORPUSCULAR HGB CONC 32.4 g/dL (31-35); MEAN CORPUSCULAR VOLUME 93.4 fL (81-99); MONOCYTES # (AUTO) 0.8 (0.2-0.8); MONOCYTES % 12.2 % (4.4-11.3); NEUTROPHILS # (AUTO) 3.6 (2.1-6.9); NEUTROPHILS % 57.4 % (38.7-80.0); PLATELET COUNT 175 x10e3/uL (140-360); RED BLOOD COUNT 3.31 x10e6/uL (3.6-5.1); RED CELL DISTRIBUTION WIDTH 17.3 % (11.7-14.4)
[2022-08-12 23:45] LABS: CLARITY,URINE CLEAR (CLEAR); COLOR,URINE YELLOW (YELLOW); KETONES,URINE NEGATIVE (NEGATIVE); LEUKOCYTE ESTERASE ,URINE NEGATIVE (NEGATIVE); NITRITE,URINE NEGATIVE (NEGATIVE); PROTEIN,URINE DIPSTICK NEGATIVE (NEGATIVE)
[2022-08-12 23:46] LABS: BACTERIA,URINE FEW /HPF; RBC,URINE 0-5 /HPF (0-5); URINE UROBILINOGEN 2 mg/dL (0.2 - 1); WBC,URINE (MAN) 0-5 /HPF (0-5)
[2022-08-13 00:10] LABS: EPITHELIAL CELLS,URINE MANY /LPF
[2022-08-13 00:39] LABS: ALBUMIN 2.2 g/dL (3.5-5.0); ALBUMIN/GLOBULIN RATIO 0.3 (0.8-2.0); ANION GAP 12.5 mmol/L (8-16); CALCIUM 8.9 mg/dL (8.4-10.2); CREATININE, SERUM 0.91 mg/dL (0.57-1.11); POTASSIUM 4.5 mmol/L (3.5-5.1)
[2022-08-13 01:31] VITALS: BP 129/76
[2022-08-16] MEDS ORDERED: LACTULOSE20 GM/30 M PO (10:36)
== END 2022-08-13 01:33 | disposition home or self-care (01) ==
LOC: ER 22:44
DX: R18.8 Other ascites (principal); K74.60 Unspecified cirrhosis of liver; R10.11 Right upper quadrant pain; E11.40 Type 2 diabetes mellitus with diabetic neuropathy, unspecified
CPT/HCPCS: 36415; 71045; 74176; 80053; 81001; 83690; 85025; 99284; C9113; J2270; J2405

== ENCOUNTER 2022-08-14 18:23 | Observation (INO) | payer MEDICARE, OTHER ==
[~2022-08-14] VITALS: Ht 144.8 cm; Wt 53.5 kg
[2022-08-14] MEDS ORDERED: SODIUM CHLORIDE 0.9% 100 ML ONE (18:42)
[2022-08-14] MEDS ORDERED: IOPAMIDOL 370 MG/ML 100 ML INFUS..BTL INJ ONE ×2 (18:42→22:30)
[2022-08-14 19:12] LABS: BASOPHILS # (AUTO) 0.1 (0.0-0.1); BASOPHILS % 0.8 % (0.0-1.0); EOSINOPHILS # (AUTO) 0.2 (0.0-0.4); EOSINOPHILS % 2.4 % (0.0-6.0); HEMATOCRIT 34.9 % (34.2-44.1); HEMOGLOBIN 11.2 g/dL (12.0-16.0); LYMPHOCYTES # (AUTO) 2.1 (1.0-3.2); LYMPHOCYTES % 29.1 % (18.0-39.1); MEAN CORPUSCULAR HEMOGLOBIN 30.4 pg (28-32); MEAN CORPUSCULAR HGB CONC 32.1 g/dL (31-35); MEAN CORPUSCULAR VOLUME 94.6 fL (81-99); MONOCYTES # (AUTO) 0.7 (0.2-0.8); NEUTROPHILS # (AUTO) 4.1 (2.1-6.9); NEUTROPHILS % 57.3 % (38.7-80.0); PLATELET COUNT 205 x10e3/uL (140-360); RED BLOOD COUNT 3.69 x10e6/uL (3.6-5.1); RED CELL DISTRIBUTION WIDTH 17.4 % (11.7-14.4)
[2022-08-14 19:27] LABS: ALBUMIN 2.4 g/dL (3.5-5.0); ALBUMIN/GLOBULIN RATIO 0.3 (0.8-2.0); ANION GAP 18.2 mmol/L (8-16); CALCIUM 9.1 mg/dL (8.4-10.2); CREATININE, SERUM 1.08 mg/dL (0.57-1.11); POTASSIUM 4.2 mmol/L (3.5-5.1)
[2022-08-14 19:28] LABS: CREATINE KINASE 66 IU/L (29-168)
[2022-08-14 20:03] LABS: CLARITY,URINE SL CLOUDY (CLEAR); COLOR,URINE YELLOW (YELLOW); KETONES,URINE NEGATIVE (NEGATIVE); LEUKOCYTE ESTERASE ,URINE NEGATIVE (NEGATIVE); NITRITE,URINE NEGATIVE (NEGATIVE); PROTEIN,URINE DIPSTICK NEGATIVE (NEGATIVE); URINE UROBILINOGEN 1 mg/dL (0.2 - 1)
[2022-08-14 20:15] LABS: BACTERIA,URINE MODERATE /HPF; EPITHELIAL CELLS,URINE MODERATE /LPF; RBC,URINE 0-5 /HPF (0-5)
[2022-08-14] MEDS ORDERED: LACTULOSE SYRUP 20 GM/30 ML UDC PO SCH (20:15)
[2022-08-14] MEDS: SODIUM CHLORIDE 0.9% 1000ML 1,000 ML IV SCH ×2 (20:30→23:37)
[2022-08-14] MEDS: ONDANSETRON HCL INJ 2MG/ML 2ML 2 MG/ML VIAL IV PRN ×2 (20:30→23:37)
[2022-08-14 22:16] LABS: CREATINE KINASE 57 IU/L (29-168)
[2022-08-14 23:00] VITALS: BP 164/82
[2022-08-14] MEDS ORDERED: LACTULOSE SYRUP 20 GM/30 ML UDC PO ONE (23:15)
[2022-08-14] MEDS ORDERED: TRAMADOL HCL 50 MG TAB PO PRN (23:15)
[2022-08-15] MEDS: Morphine 4mg INJECTION 4 MG/ML INJ IV PRN ×3 (00:09→20:32)
[2022-08-15 00:43] VITALS: BP 135/72
[2022-08-15] MEDS: LACTULOSE SYRUP 20 GM/30 ML UDC PO SCH ×3 (05:18→21:40)
[2022-08-15] MEDS: SODIUM CHLORIDE 0.9% 1000ML 1,000 ML IV SCH ×2 (05:19→13:53)
[2022-08-15] MEDS: ONDANSETRON HCL INJ 2MG/ML 2ML 2 MG/ML VIAL IV PRN (05:19)
[2022-08-15 05:25] VITALS: BP 112/58
[2022-08-15 06:09] LABS: BASOPHILS # (AUTO) 0.1 (0.0-0.1); BASOPHILS % 0.8 % (0.0-1.0); EOSINOPHILS # (AUTO) 0.2 (0.0-0.4); EOSINOPHILS % 2.7 % (0.0-6.0); HEMATOCRIT 30.9 % (34.2-44.1); HEMOGLOBIN 9.5 g/dL (12.0-16.0); LYMPHOCYTES # (AUTO) 1.9 (1.0-3.2); LYMPHOCYTES % 30.9 % (18.0-39.1); MEAN CORPUSCULAR HGB CONC 30.7 g/dL (31-35); MEAN CORPUSCULAR VOLUME 97.5 fL (81-99); MONOCYTES # (AUTO) 0.6 (0.2-0.8); MONOCYTES % 10.6 % (4.4-11.3); NEUTROPHILS # (AUTO) 3.3 (2.1-6.9); NEUTROPHILS % 54.7 % (38.7-80.0); PLATELET COUNT 202 x10e3/uL (140-360); RED BLOOD COUNT 3.17 x10e6/uL (3.6-5.1); RED CELL DISTRIBUTION WIDTH 17.2 % (11.7-14.4)
[2022-08-15 06:24] LABS: INR 1.28; PROTHROMBIN TIME 16.5 seconds (11.9-14.5)
[2022-08-15 06:46] LABS: ALBUMIN/GLOBULIN RATIO 0.3 (0.8-2.0); ANION GAP 12.2 mmol/L (8-16); CALCIUM 8.2 mg/dL (8.4-10.2); CREATININE, SERUM 0.99 mg/dL (0.57-1.11); POTASSIUM 4.2 mmol/L (3.5-5.1)
[2022-08-15 07:01] LABS: CREATINE KINASE 47 IU/L (29-168)
[2022-08-15 08:00] VITALS: BP 109/63
[2022-08-15] MEDS ORDERED: TRAZODONE HCL50 MG PO (08:04)
[2022-08-15 13:01] VITALS: BP 128/73
[2022-08-15 14:23] LABS: CREATINE KINASE 49 IU/L (29-168)
[2022-08-15 16:00] VITALS: BP 162/77
[2022-08-15 20:00] VITALS: BP 144/77
[2022-08-15] MEDS ORDERED: TRAZODONE HCL 50 MG TAB PO SCH (21:00)
[2022-08-15] MEDS ORDERED: ATORVASTATIN 20 MG TAB PO SCH (21:00)
[2022-08-15] MEDS: GABAPENTIN 300 MG CAP PO SCH (21:40)
[2022-08-16] VITALS: BP 115/64
[2022-08-16 04:00] VITALS: BP 105/57
[2022-08-16] MEDS: SODIUM CHLORIDE 0.9% 1000ML 1,000 ML IV SCH (04:03)
[2022-08-16] MEDS: LACTULOSE SYRUP 20 GM/30 ML UDC PO SCH (05:45)
[2022-08-16 06:33] LABS: BASOPHILS % 0.7 % (0.0-1.0); EOSINOPHILS # (AUTO) 0.2 (0.0-0.4); EOSINOPHILS % 3.4 % (0.0-6.0); HEMATOCRIT 30.5 % (34.2-44.1); HEMOGLOBIN 9.5 g/dL (12.0-16.0); LYMPHOCYTES # (AUTO) 1.7 (1.0-3.2); LYMPHOCYTES % 29.3 % (18.0-39.1); MEAN CORPUSCULAR HEMOGLOBIN 29.8 pg (28-32); MEAN CORPUSCULAR HGB CONC 31.1 g/dL (31-35); MEAN CORPUSCULAR VOLUME 95.6 fL (81-99); MONOCYTES # (AUTO) 0.7 (0.2-0.8); MONOCYTES % 11.3 % (4.4-11.3); NEUTROPHILS # (AUTO) 3.3 (2.1-6.9); NEUTROPHILS % 55.1 % (38.7-80.0); PLATELET COUNT 173 x10e3/uL (140-360); RED BLOOD COUNT 3.19 x10e6/uL (3.6-5.1); RED CELL DISTRIBUTION WIDTH 17.1 % (11.7-14.4)
[2022-08-16 07:06] LABS: ANION GAP 9.6 mmol/L (8-16); CALCIUM 7.7 mg/dL (8.4-10.2); CREATININE, SERUM 0.89 mg/dL (0.57-1.11); POTASSIUM 3.6 mmol/L (3.5-5.1)
[2022-08-16 08:00] VITALS: BP 113/63
[2022-08-16 08:01] VITALS: BP 113/63
[2022-08-16] MEDS: GABAPENTIN 300 MG CAP PO SCH (08:45)
[2022-08-16] MEDS ORDERED: PANTOPRAZOLE SOD 40 MG TABEC PO SCH (09:00)
[2022-08-16] MEDS ORDERED: FUROSEMIDE 40 MG TAB PO SCH (09:00)
[2022-08-16] MEDS ORDERED: SPIRONOLACTONE 25 MG TAB PO SCH (09:00)
[2022-08-16] MEDS ORDERED: PROPRANOLOL HCL 10 MG TAB PO SCH (09:00)
[2022-08-16] MEDS ORDERED: LACTULOSE20 GM/30 M PO (10:36)
[2022-08-16 11:00] VITALS: BP 113/64
== END 2022-08-16 11:43 | disposition home or self-care (01) ==
LOC: ER 18:28 → ERHOLD 20:06 → INTOOBSV 20:06 → MED/SURG3 22:10
PROVIDERS: ADMIT Internal Medicine; ATTEND Internal Medicine
DX: K76.82 Hepatic encephalopathy (principal); K70.31 Alcoholic cirrhosis of liver with ascites; F10.20 Alcohol dependence, uncomplicated; K76.6 Portal hypertension; K31.89 Other diseases of stomach and duodenum; Z88.6 Allergy status to analgesic agent; Z88.5 Allergy status to narcotic agent; Z88.0 Allergy status to penicillin; Z20.822 Contact with and (suspected) exposure to COVID-19
CPT/HCPCS: 36415 ×3; 70496; 70498; 71045; 76705; 80048; 80053 ×2; 81001; 82140 ×3; 82550 ×2; 82553 ×2; 82948 ×2; 84484 ×2; 85025 ×3; 85610; 93005; 96361; 99284; G0378 ×3; J0696; J2270; J2405 ×2; J7030 ×3; J7050; Q9967; S0164; U0002